=== PATIENT | male | born 1930 | race African-American/Black ===

== ENCOUNTER 2017-07-01 19:11 | Observation (INO) | payer MEDICARE, OTHER ==
[~2017-07-01] VITALS: Ht 172.7 cm; Wt 67.6 kg
[2017-07-01 23:54] LABS: BASOPHILS % 0.7 % (0.0-2.0); EOSINOPHILS % 1.9 % (0.0-5.0); HEMATOCRIT. 37.5 % (42.0-52.0); LYMPHOCYTES % 21.7 % (20.0-50.0); MEAN CORPUSCULAR HEMOGLOBIN 28.2 pg (28.0-32.0); MEAN CORPUSCULAR VOLUME 88.2 fL (80.0-94.0); MEAN PLATELET VOLUME 10.1 fl (7.4-10.4); MONOCYTES % 2.3 % (2.0-8.0); NEUTROPHILS % 73.4 % (40.0-76.0); PLATELET 183 x1000/uL (130-400); RED BLOOD CELL COUNT 4.25 mill/uL (4.7-6.1); RED CELL DISTRIBUTION WIDTH 14.9 % (11.6-14.6)
[2017-07-02 00:08] LABS: PARTIAL THROMBOPLASTIN TIME 24.8 sec (23.4-31.0); PROTHROMBIN TIME 10.6 sec (9.4-11.6)
[2017-07-02] MEDS ORDERED: ENOXAPARIN 80MG/0.8ML SYR SUBCUT ONE (00:45)
[2017-07-02 01:55] VITALS: BP 154/50
[2017-07-02] MEDS ORDERED: METH2.5T (02:04)
[2017-07-02] MEDS ORDERED: FOLI-43 PO (02:04)
[2017-07-02] MEDS ORDERED: OXYB5TAB PO (02:04)
[2017-07-02] MEDS ORDERED: BIMA2.5D4 RIGHTEYE (02:13)
[2017-07-02 02:30] VITALS: BP 154/50
[2017-07-02] MEDS ORDERED: HYDROCODONE/ACETAMINOPHEN 5/325MG TABLET PO PRN (03:15)
[2017-07-02 04:24] VITALS: BP 145/53
[2017-07-02] MEDS ORDERED: PANTOPRAZOLE 40MG DR TABLET PO SCH (07:20)
[2017-07-02 08:00] VITALS: BP 121/52
[2017-07-02 12:00] VITALS: BP 121/50
[2017-07-02 14:19] VITALS: BP 121/50
[2017-07-02] MEDS ORDERED: ENOXAPARIN 80MG/0.8ML SYR SUBCUT SCH (21:00)
== END 2017-07-02 17:10 | disposition home or self-care (01) ==
LOC: ER 21:13 → 6EST 07-02 00:40 → INTOOBSV 07-02 00:40 → EDBEDREQ 07-02 00:43 → EDBEDREQTM 07-02 00:43 → ENRESERV 07-02 01:07 → 6WST 07-02 04:00
PROVIDERS: ADMIT Internal Medicine; ATTEND Internal Medicine
DX: I82.432 Acute embolism and thrombosis of left popliteal vein (principal); N18.9 Chronic kidney disease, unspecified; Z85.51 Personal history of malignant neoplasm of bladder; Z90.79 Acquired absence of other genital organ(s)
CPT/HCPCS: 36415; 71045; 80048; 85025; 85610; 85730; 86850; 86900; 86901; 93005; 93970; 96372; 99285; G0378; J1650